=== PATIENT | female | born 1955 | race Two or more races ===

== ENCOUNTER 2016-09-09 07:58 | Day surgery (SDC) | payer OTHER ==
[2016-09-06 17:03] VITALS: BMI 36.7
[2016-09-09] VITALS (17 sets, daily range): BP systolic 152–186; BP diastolic 64–105; PULSE 54–64; RESP 14–23; Ht 152.4 cm; Wt 99.5 kg
[~2016-09-09] VITALS: Ht 152.4 cm; Wt 99.5 kg
[~2016-09-09 07:58] MED LIST: CEFAZOLIN 2 GM/50 ML (PMX) 50 ML IVPB SCH; SOD CHLORIDE 0.9% 1,000 ML IV SCH
[2016-09-09] MEDS ORDERED: PROPOFOL 60 ML ONE (10:58)
[2016-09-09] MEDS ORDERED: FENTAnyl 50 MCG/ML VIAL ONE (10:58)
[2016-09-09] MEDS ORDERED: LIDOCAINE 2% (SDV) 5 ML INJ ONE (10:58)
[2016-09-09] MEDS ORDERED: MIDAZOLAM 1 MG/ML 2 ML INJ ONE (10:59)
[2016-09-09] MEDS ORDERED: CEFAZOLIN 1 GM INJ ONE (11:08)
[2016-09-09] MEDS ORDERED: BUPIVACAINE 0.25% (MPF) 10 ML 10 ML VIAL INJ ONE (11:24)
[2016-09-09] MEDS ORDERED: LABETALOL HCL 20MG INJ IV PRN (12:00)
[2016-09-09] MEDS ORDERED: EPHEDrine SULFATE 50 MG/5 ML SYG IV PRN (12:00)
[2016-09-09] MEDS ORDERED: FENTAnyl 50 MCG/ML VIAL IV PRN ×3 (12:00)
[2016-09-09] MEDS ORDERED: ONDANSETRON 4 MG INJ IV PRN (12:00)
[2016-09-09] MEDS ORDERED: hydrALAzine 20 MG INJ IV PRN (12:00)
[2016-09-09] MEDS ORDERED: HYDROCODONE/APAP (5/325) TAB ONE (12:12)
[2016-09-09] MEDS ORDERED: HYDROCODONE/APAP (5/325) TAB PO ONE (12:30)
--- NOTE | 2016-09-09 12:59 | OPR ---
DATE OF OPERATION: 09/09/2016 INDICATION: This is a 61-year-old female with a left breast tumor. She requests surgical excision. Risks, alternatives, benefits, and personnel were discussed with the patient. The patient express ed understanding and consents to the operation. PREOPERATIVE DIAGNOSIS: Left breast tumor. POSTOPERATIVE DIAGNOSIS: Left breast tumor. OPERATIONS PERFORMED: 1. Radical resection of left breast tumor with 7 cm size incision and 5 cm size tumor. 2. Localized adjacent tissue transfer with the use of skin flaps. Defect size is 14 sq cm, [place] [address]. 3. Therapeutic injection into the subcutaneous space of the left breast [place], [place] [address]. SURGEON: Umer Nguyen MD SPECIMEN: Left breast tumor. COMPLICATIONS: None. ANESTHESIA: General. DESCRIPTION OF PROCEDURE: The patient was taken to the OR and prepped and draped in the usual steri le fashion. Surgical time out was performed. IV antibiotics were given. Left breast. radiographi c imaging is reviewed prior to making an incision. A curvilinear incision was made in the left amelia st, superior to the areola in a curvilinear fashion with a 15 blade. Dissection cautery was carried down following the guidewire to the tumor. This tumor is excised circumferentially radically with a margin of normal tissue with Bovie cautery. There was good hemostasis. Due to the large tissue d efect, oncoplastic closure with skin flaps were created. The closure was performed in a multilayer fashion with interrupted 3-0 Vicryl and 2-0 Vicryl and running 4-0 Monocryl. Local anesthesia was i njected. Dry dressings were applied. Dictated By: UMER NGUYEN MD SB/SHAHRIAR Conf#: [id number] DID#: [id number]
== END 2016-09-09 13:46 | disposition home or self-care (01) ==
LOC: SDS 07:58
PROVIDERS: ATTEND Surgery
DX: D24.2 Benign neoplasm of left breast (principal); N60.12 Diffuse cystic mastopathy of left breast; N64.1 Fat necrosis of breast; N60.92 Unspecified benign mammary dysplasia of left breast; J45.909 Unspecified asthma, uncomplicated; I10 Essential (primary) hypertension; E66.01 Morbid (severe) obesity due to excess calories; Z68.41 Body mass index [BMI] 40.0-44.9, adult
CPT/HCPCS: 14000; 19120; 88307; J0360; J0690; J2250; J2405; J3010; Z7512; Z7610